=== PATIENT | female | born 1935 | race Caucasian/White ===

== ENCOUNTER 2023-09-14 21:42 | Inpatient (IN) | payer MEDICARE, OTHER ==
[~2023-09-14] VITALS: Ht 157.5 cm; Wt 61.7 kg
[2023-09-14] MEDS ORDERED: methylPREDNISolone SOD SUCC 125 MG/2 ML VIAL IV ONE (21:45)
[2023-09-14] MEDS ORDERED: FUROSEMIDE 40 MG/4 ML VIAL IV ONE (22:15)
[2023-09-14] MEDS ORDERED: ALBUTEROL/IPRATROPIUM 3 ML NEB INH ONE (22:15)
[2023-09-14] MEDS ORDERED: CEFTRIAXONE/SODIUM CHLORIDE 2 GM/100 ML PIGGYBACK IV ONE (22:15)
[2023-09-14 22:19] LABS: BASOPHILS 0.8 % (0-2); HEMATOCRIT 40.9 % (35.0-50.0); HEMOGLOBIN 13.5 g/dL (12.0-18.0); LYMPHOCYTES 10.1 % (24-44); MCV 93.8 fl (81-99); MONOCYTES 9.9 % (0-12); NEUTROPHILS 79.2 % (39-80); PLATELET COUNT 215 K/uL (140-440); RBC 4.36 M/ul (4.3-5.7); RDW 14.3 (10.5-15.0)
[2023-09-14 22:28] LABS: INFLUENZA B NAA NEGATIVE (NEGATIVE); RESPIRATORY SYNCYTIAL VIR NAA NEGATIVE (NEGATIVE)
[2023-09-14 22:29] LABS: ALBUMIN 3.7 g/dL (3.4-5.0); ALBUMIN/GLOBULIN RATIO 0.84 (1.1-2.4); ANION GAP 13.6 (7-21); BILIRUBIN, TOTAL 0.8 ng/dL (0.2-1.0); BUN/CREATININE RATIO 26.88 (6.0-28.6); CALCIUM 9.6 mg/dL (8.5-10.1); CREATININE, SERUM 0.93 mg/dL (0.55-1.02); POTASSIUM 3.6 mmol/L (3.5-5.1); PROTEIN, TOTAL 8.1 g/dL (6.4-8.2)
[2023-09-14] MEDS ORDERED: BAYER CHEWABLE81 MG PO (22:39)
[2023-09-14] MEDS ORDERED: LIPITOR80 MG PO (22:39)
[2023-09-14] MEDS ORDERED: METOPROLOL SUCC50 MG PO (22:40)
[2023-09-14] MEDS ORDERED: MELATONIN3 M3 PO (22:40)
[2023-09-14] MEDS ORDERED: CALCIUM 600 MG1 EA10 PO (22:40)
[2023-09-14] MEDS ORDERED: OCUVEL CAPSULE1 EACH PO (22:41)
[2023-09-14] MEDS ORDERED: REMDESIVIR 200 MG in SODIUM CHLORIDE 0.9% 210 ML IV ONE (23:15)
[2023-09-14] MEDS ORDERED: DOXYCYCLINE HYCLATE 100 MG/10 ML VIAL ONE (23:29)
[2023-09-14] MEDS ORDERED: DOXYCYCLINE HYCLATE 100 MG in DEXTROSE 5% 100 ML IV ONE (23:30)
[2023-09-14 23:45] LABS: BASE EXCESS, BLOOD GAS -1.2 mmol/L (-2-2); HCO3, BLOOD GAS 22.9 mmol/L (22-26); O2 SATURATION, BLOOD GAS 95.6 % (95.0-100.0); PCO2, BLOOD GAS 35.6 mmHg (35-45); PH, BLOOD GAS 7.42 (7.35-7.45)
[2023-09-15] VITALS (7 sets, daily range): BP systolic 93–156; BP diastolic 62–101
[2023-09-15 00:10] LABS: LACTIC ACID, BLOOD 4.3 mmol/L (0.4-2.0)
[2023-09-15] MEDS ORDERED: ENOXAPARIN SODIUM 60 MG/0.6 ML SYR SUB-Q ONE (00:15)
[2023-09-15 00:28] LABS: BILIRUBIN, URINE NEGATIVE (negative); BLOOD/HGB, URINE NEGATIVE (Negative); KETONE, URINE NEGATIVE (Negative); LEUK ESTERASE, URINE TRACE (negative); NITRITE, URINE NEGATIVE (negative)
[2023-09-15 00:38] LABS: RED BLOOD CELLS, URINE 0-1 /hpf (0-5)
[2023-09-15 00:40] LABS: BACTERIA, URINE 1+ /hpf (negative); CASTS, URINE NONE SEEN \\lpf; COLLECTION TYPE, URINE CLEAN CATCH; CRYSTALS, URINE NONE SEEN (0-1+); EPITHELIAL CELLS, URINE NS /lpf (0-1+); REFLEX CULTURE, URINE Yes (No)
[2023-09-15 05:22] LABS: BASE EXCESS, BLOOD GAS -3.4 mmol/L (-2-2); HCO3, BLOOD GAS 19.7 mmol/L (22-26); PCO2, BLOOD GAS 29.6 mmHg (35-45); PH, BLOOD GAS 7.43 (7.35-7.45); TOTAL CO2, BLOOD GAS 20.6
[2023-09-15] MEDS ORDERED: LORazepam 2 MG/ML VIAL IV ONE (06:15)
[2023-09-15] MEDS ORDERED: SODIUM CHLORIDE 0.9% IV SCH (09:00)
[2023-09-15] MEDS ORDERED: VANCOMYCIN PER PHARMACY PROTOCOL IV SCH (09:00)
[2023-09-15] MEDS ORDERED: REMDESIVIR IV SCH (09:00)
[2023-09-15] MEDS ORDERED: DEXAMETHASONE SOD PHOS 10 MG/ML VIAL IV SCH (09:00)
[2023-09-15 09:04] LABS: BASE EXCESS, BLOOD GAS 0.2 mmol/L (-2-2); HCO3, BLOOD GAS 23.7 mmol/L (22-26); O2 SATURATION, BLOOD GAS 94.1 % (95.0-100.0); PCO2, BLOOD GAS 34.5 mmHg (35-45); PH, BLOOD GAS 7.45 (7.35-7.45); PO2, BLOOD GAS 63 mmHg (80-100); TOTAL CO2, BLOOD GAS 24.7
[2023-09-15] MEDS ORDERED: REMDESIVIR 100 MG in SODIUM CHLORIDE 0.9% 250 ML IV SCH (09:15)
[2023-09-15] MEDS ORDERED: REMDESIVIR 100 MG in SODIUM CHLORIDE 0.9% 230 ML IV SCH (09:30)
[2023-09-15] MEDS ORDERED: VANCOMYCIN HCL 1,500 MG in DEXTROSE 5% 500 ML IV ONE (10:00)
[2023-09-15] MEDS ORDERED: AMP/SULBACTAM SOD 1.5 GM in SODIUM CHLORIDE 0.9% 100 ML IV SCH ×2 (10:30→14:00)
[2023-09-15] MEDS ORDERED: ENOXAPARIN SODIUM 60 MG/0.6 ML SYR SUB-Q SCH (11:00)
[2023-09-15] MEDS ORDERED: VITAMIN C1000 M2 PO (11:06)
[2023-09-15] MEDS ORDERED: VITAMIN D350 MCG PO (11:07)
--- NOTE | 2023-09-15 11:57 | EKG ---
[facility] [address] [place], [place] [address] Signed Normal sinus rhythm Normal ECG No previous ECGs available Confirmed by Gia Lo MD ([id number]) on 09/15/2023 11:57:50 AM Electronically Signed By: GIA LO 09/15/23 1157 PATIENT NAME: RUSS LOVE Electrocardiogram DATE OF : 39 PHYSICIAN: GIA LO REPORT #: [id number] REPORT IS CONFIDENTIAL AND NOT TO BE RELEASED WITHOUT AUTHORIZATION
[2023-09-15] MEDS ORDERED: PHARMACY RENAL DOSE ADJUSTMENT 1 DOSE MISC PO SCH (12:00)
[2023-09-15] MEDS ORDERED: ARTIFICIAL TEARS 15 ML BTL OU PRN (12:15)
[2023-09-15] MEDS ORDERED: LORazepam 2 MG TABLET PO PRN (12:15)
[2023-09-15] MEDS ORDERED: LORazepam 2 MG/ML VIAL IV PRN (12:15)
[2023-09-15] MEDS ORDERED: HYDROmorphone HCL 2 MG/ML VIAL IV ONE (12:15)
[2023-09-15] MEDS ORDERED: MORPHINE SULFATE 10 MG/ML VIAL IV PRN (12:15)
[2023-09-15] MEDS ORDERED: ATROPINE SULFATE 1% OPTH DROPS SL PRN (12:15)
[2023-09-16] MEDS ORDERED: VANCOMYCIN HCL 1,000 MG in DEXTROSE 5% 250 ML IV SCH (10:00)
[2023-09-16 23:44] LABS: FERRITIN 408 ng/mL (11-328)
[2023-09-17 08:18] VITALS: BP 131/70
[2023-09-17] MEDS ORDERED: ELIQUIS5 M1 PO (10:51)
[2023-09-17] MEDS ORDERED: AMOX TR-K CLV1 EAC1 PO (10:52)
[2023-09-18] MEDS ORDERED: SCOPOLAMINE 1 MG/3 DAYS PATCH 1 EACH TDSY TD SCH (09:00)
== END 2023-09-17 13:20 | disposition hospice, home (50) | DRG 871 ==
LOC: ED 21:42 → CCU 09-15 00:02
PROVIDERS: Internal Medicine; ADMIT Internal Medicine; ATTEND Internal Medicine
PROC: 4A033R1 Measurement of Arterial Saturation, Peripheral, Percutaneous Approach (ICD-10-PCS; principal; 2023-09-15)
PROC: XW033E5 Introduction of Remdesivir Anti-infective into Peripheral Vein, Percutaneous Approach, New Technology Group 5 (ICD-10-PCS; 2023-09-15)
PROC: 3E0333Z Introduction of Anti-inflammatory into Peripheral Vein, Percutaneous Approach (ICD-10-PCS; 2023-09-15)
PROC: 8E0ZXY6 Isolation (ICD-10-PCS; 2023-09-15)
PROC: 3E03329 Introduction of Other Anti-infective into Peripheral Vein, Percutaneous Approach (ICD-10-PCS; 2023-09-15)
DX: A41.89 Other specified sepsis (principal); G93.41 Metabolic encephalopathy; U07.1 COVID-19; J12.82 Pneumonia due to coronavirus disease 2019; J96.01 Acute respiratory failure with hypoxia; J69.0 Pneumonitis due to inhalation of food and vomit; I26.93 Single subsegmental thrombotic pulmonary embolism without acute cor pulmonale; J15.9 Unspecified bacterial pneumonia; E87.20 Acidosis, unspecified; Z66 Do not resuscitate; Z51.5 Encounter for palliative care; G30.9 Alzheimer's disease, unspecified; F02.C0 Dementia in other diseases classified elsewhere, severe, without behavioral disturbance, psychotic disturbance, mood disturbance, and anxiety; Z79.899 Other long term (current) drug therapy; Z79.82 Long term (current) use of aspirin
CPT/HCPCS: 36415; 36600; 51702; 71045; 71260; 74176; 80053; 81001; 82728; 82803; 83605; 83880; 84484; 85025; 85379; 86140; 87040; 87070; 87088; 87205; 87502; 93005; 93010; 94640; 94660; 99291; 99292; C9803; J0248; J0295; J0696; J1100; J1170; J1650; J1940; J2060; J2270; J2930; J3370; J7050; J7060; Q9967; U0002